=== PATIENT | female | born 1980 | race African-American/Black ===

== ENCOUNTER 2016-07-18 08:52 | Emergency (ER) | payer MEDICAID ==
[2016-07-18 09:12] VITALS: BP 150/102
--- NOTE | 2016-07-18 09:52 | ERNOTE ---
Back Pain ER HPI Date of Service: 07/18/16 Presenting Symptoms: hx chronic back pain Time Seen by Provider: 07/18/16 09:35 Source: patient Exam Limitations: no limitations Immunizations: IMMUNIZATION HX Immunizations Up to Date Yes History of Influenza Vaccine No Hx Pneumococcal Vaccination No Allergies/Adverse Reactions: Allergies No Known Allergies Allergy (Verified 07/18/16 09:12) Home Medications: HOME MEDICATIONS Cyclobenzaprine HCl 10 mg PO BID #28 tablet 07/18/16 [Last Taken Unknown] Sulindac 200 mg PO BID #28 tab 07/18/16 [Last Taken Unknown] Narrative: Woke up yesterday morning with pain in her low back. Hard to move because of the pain. Has had problems off and on for two years. Has been in our ER once before for the same problem. No radiation of pain. NOS. Pain moderate to severe. Tight and sharp pain. Timing: Reports: constant Quality/Severity: Reports: moderate, severe Location of pain: Reports: lower back, no radiation. Denies: radiating to rt thigh/leg Activities at Onset: Reports: none Recent Injury?: Reports: no Possible Precipitating Factor: Reports: none Modifying Factors - (Improves): Reports: other - rest Modifying Factors - (Worsens): Reports: movement to right, movement to left, movement flexion Associated Symptoms: Reports: none Prior Treament: Reports: similar symptoms before. Denies: recently seen, treated by physician, currently on antibiotics Review of Systems - Review of Systems Constitutional: Present: no symptoms reported EYE: Present: no symptoms reported ENT: Present: no symptoms reported Respiratory: Present: no symptoms reported Cardiology: Present: no symptoms reported Gastrointestinal/Abdominal: Present: no symptoms reported Genitourinary: Present: no symptoms reported Musculoskeletal: Present: See HPI Skin: Present: no symptoms reported Neurological: Present: no symptoms reported Endocrine: Present: no symptoms reported Hematologic/Lymphatic: Present: no symptoms reported Psych: Present: no symptoms reported All Other Systems: All systems neg except as marked - Patient's Past Medical History Patient History - Medical: No pertinent hx Patient History - Cardiac/Respiratory: No pertinent hx Patient History - Cancer: No Hx of Cancer Patient History - Surgical Procedures: Patient History - Other: None LMP (Calendar): 09/14/15 - Family History Mother Family History - Medical: No pertinent hx Father Family History - Medical: No pertinent hx - Social History Living Situations: home Abuse History: No History of abuse Psych History: No pertinent hx Smoking Status: Current every day smoker Have you smoked in the past 12 months: Yes Do you dip or chew tobacco: No Alcohol Use: occasionally Drug Use: none - Immunizations Immunizations Up to Date: Yes Hx Pneumococcal Vaccination: No History of Influenza Vaccine: No Physical Exam - Physical Exam General Appearance: Present: wd/wn, alert, no apparent distress Eye Exam: Normal inspection: bilateral, PERRL: bilateral, EOMI: bilateral Ears, Nose, Throat: Present: normal ENT inspection, hearing grossly normal Neck: Present: normal inspection Respiratory: Present: no respiratory distress, normal breath sounds Cardiovascular/Chest: Present: regular rate, rhythm, no murmur Gastrointestinal/Abdominal: Present: normal bowel sounds, nontender, nondistended, soft, no organomegaly Back Exam: Present: normal inspection, other - tender midline lumbosacral spine and the muscles to the right of the lumbosacral spine Extremity Exam: Present: normal inspection, non-tender, no edema, normal range of motion Neurological Exam: Present: alert, oriented, normal mood/affect, no motor/ sensory deficits Skin Exam: Present: normal color, warm/dry ED Progress - Vital Signs Patient's Vital Signs:: I have reviewed the patient's vital signs. Vital Signs: Vital Signs 07/18/16 09:09 Temperature 36.4 C Pulse Rate 96 Respiratory 14 Rate Blood Pressure 150/102 O2 Sat by Pulse 99 Oximetry - Progress/Reassessment Chief Complaint: Back Pain Departure Clinical Impression: Low back pain Qualifiers: Chronicity: acute Back pain laterality: bilateral Sciatica presence: without sciatica Qualified Code(s): M54.5 - Low back pain - Departure Disposition: Home self-care Condition: Good Instructions: Musculoskeletal Pain Additional Instructions: Use over the counter biofreeze gel and ice 20 minutes hourly. Followup with provider of your choice within the next 2 weeks. Consider visiting a chiropractor Prescriptions: Cyclobenzaprine HCl 10 mg PO BID #28 tablet Sulindac 200 mg PO BID #28 tab
== END 2016-07-18 10:00 | disposition home or self-care (01) ==
LOC: ER 08:52
DX: M54.5 Low back pain (principal); Z72.0 Tobacco use

== ENCOUNTER 2016-08-13 11:10 | Emergency (ER) | payer MEDICAID ==
--- NOTE | 2016-08-13 12:10 | ERNOTE ---
Abdominal HPI - Narrative Date of Service: 08/13/16 - General Chief Complaint: Abdominal Pain Time Seen by Provider: 08/13/16 11:40 Source: patient Exam Limitations: no limitations - Immun/Allergies/Home Medications Immunizatons: IMMUNIZATION HX Immunizations Up to Date Yes History of Influenza Vaccine No Hx Pneumococcal Vaccination No Allergies/Adverse Reactions: Allergies No Known Allergies Allergy (Verified 08/13/16 11:18) Home Medications: HOME MEDICATIONS Hydrocodone/Acetaminophen [Woden 5-325 Tablet] 1 tab PO Q6H PRN 08/13/16 [Last Taken Unknown] Omeprazole [Prilosec] 1 cap PO DAILY #30 cap 08/13/16 [Last Taken Unknown] traMADol HCL [Ultram] 1 tab PO Q8H PRN #30 tablet 08/13/16 [Last Taken Unknown] - History of Present Illness Narrative: Presents with c/o epigastric pain for several weeks, described as burning pressure. Pt seen in [id number] 2 days ago, but claims she needs a new Rx due to insurance issues. No nausea or vomiting at this time. Timing: intermittent Quality: moderate, burning, fullness, sharpness Modifying Factors - (Improves): Present: analgesics Associated Symptoms: Present: heartburn. Absent: headache, back pain, chest pain, neck pain, diaphoresis, diarrhea-gross blood, diarrhea-mucous, fatigue, fever/chills, nausea, vomiting, loss of appetite, shortness of breath, swelling/ mass in abdomen, syncope, weakness, other Review of Systems - Review of Systems Constitutional: Present: no symptoms reported EYE: Present: no symptoms reported ENT: Present: no symptoms reported Respiratory: Present: no symptoms reported Cardiology: Present: no symptoms reported Gastrointestinal/Abdominal: Present: See HPI Genitourinary: Present: no symptoms reported Skin: Present: no symptoms reported Neurological: Present: no symptoms reported Endocrine: Present: no symptoms reported Hematologic/Lymphatic: Present: no symptoms reported Psych: Present: no symptoms reported All Other Systems: All systems neg except as marked - Patient's Past Medical History Patient History - Medical: No pertinent hx Patient History - Cardiac/Respiratory: No pertinent hx Patient History - Cancer: No Hx of Cancer Patient History - Surgical Procedures: Patient History - Other: None LMP (Calendar): 09/14/15 - Family History Mother Family History - Medical: No pertinent hx Father Family History - Medical: No pertinent hx - Social History Living Situations: home Abuse History: No History of abuse Psych History: No pertinent hx Alcohol Use: occasionally Drug Use: none - Immunizations Immunizations Up to Date: Yes Hx Pneumococcal Vaccination: No History of Influenza Vaccine: No Physical Exam - Physical Exam General Appearance: Present: wd/wn, alert, no apparent distress Ears, Nose, Throat: Present: normal ENT inspection, normal pharynx Neck: Present: normal inspection, nontender Respiratory: Present: no respiratory distress, normal breath sounds, no accessory muscle use, chest nontender, lungs clear Cardiovascular/Chest: Present: regular rate, rhythm, no murmur Gastrointestinal/Abdominal: Present: normal bowel sounds, nondistended, soft, no organomegaly, tenderness - moderate epigastric TTP. Absent: distended, guarding, rebound, McBurney sign, Garcia sign, mass, hernia, hepatomegaly Back Exam: Present: normal inspection, normal range of motion, no CVA tenderness , no vertebral tenderness Neurological Exam: Present: alert, oriented Skin Exam: Present: normal color, warm/dry ED Progress - Results and Orders Patient's Lab Results:: I have reviewed the patient's lab results. - Vital Signs Patient's Vital Signs:: I have reviewed the patient's vital signs. Vital Signs: Vital Signs 08/13/16 11:13 Temperature 36.5 C Pulse Rate 92 Respiratory 12 Rate Blood Pressure 153/124 O2 Sat by Pulse 100 Oximetry - Progress/Reassessment Chief Complaint: Abdominal Pain Departure - Departure Clinical Impression: Epigastric pain Disposition: Home self-care Condition: Good Instructions: Heartburn, [id number], Esophagitis Referrals: Talisha Maria FNP [Primary Care Provider] - Prescriptions: Omeprazole [Prilosec] 1 cap PO DAILY #30 cap traMADol HCL [Ultram] 1 tab PO Q8H PRN #30 tablet PRN Reason: Pain
[2016-08-13 12:30] LABS: Hematocrit 32.4 % (37.0-47.0); Hemoglobin 11.2 gm/dL (12.5-16.0); Mean Cell Volume 68.5 fl (78-100); Mean Corpuscular Hemoglobin 23.7 pg (27-31); Mean Corpuscular Hgb Conc 34.6 g/dl (32-36); Platelet Count 165 K/mm3 (150-450); Red Blood Count 4.73 M/mm3 (4.2-5.4); Red Cell Distribution Width 19.8 % (11.5-14.0); White Blood Count 13.2 K/mm3 (4.0-10.5)
[2016-08-13 12:40] LABS: Total Cells Counted 100
[2016-08-13 12:41] LABS: Anion Gap 12.5 mmol/L (6.8-13.8); BUN/Creatinine Ratio 8.2 (9.0-21.6); Bilirubin, Total 0.4 mg/dL (0.0-1.1); Ca. Corrected For Albumin 8.5 mg/dL (8.4-10.2); Calcium * 8.8 mg/dL (7.9-10.9); Carbon Dioxide 28.1 mmol/L (24-32.6); Potassium 3.6 mmol/L (3.4-4.6); Total Protein 8.3 gm/dL (6.2-8.2)
[2016-08-13 12:51] LABS: Eosinophil 3 % (0-3); Hypochromia 1+; Lymphocyte 15 % (20-51); Monocyte 6 % (0-9); Neutrophil 76 % (42-75); Platelet Estimate Normal (NORMAL)
[2016-08-13 13:17] LABS: Urine Bilirubin Negative (NEGATIVE); Urine Blood Negative /ul (NEGATIVE); Urine Ketone Negative (NEGATIVE); Urine Nitrite Negative (NEGATIVE); Urine Protein 15 mg/dL (NEGATIVE); Urine Urobilinogen Normal (NORMAL); Urine pH 6.5 pH (5.0-7.0)
[2016-08-13 13:19] VITALS: BP 163/95
[2016-08-13 13:28] LABS: Urine Appearance Slightly Cloudy; Urine Bacteria 2+; Urine Color Yellow; Urine RBC None Seen /hpf (0-5)
[2016-08-13 13:29] LABS: Urine Fine Granular Cast 0-5 /LPF; Urine Mucus Moderate - 2+
== END 2016-08-13 14:04 | disposition home or self-care (01) ==
LOC: ER 11:10
DX: R10.13 Epigastric pain (principal)

== ENCOUNTER 2020-11-27 06:27 | Inpatient (IN) ==
[~2020-11-27 06:27] MED LIST: AZITHROMYCIN 500 MG in DEXTROSE 5 % IN WATER 250 ML IV PRN; ceFAZolin SODIUM 1 GM VIAL IV PRN
[2020-11-27 07:32] LABS: Cocaine Ur Negative (NEGATIVE); Urine Barbiturate Negative (NEGATIVE); Urine Benzodiazepines Negative (NEGATIVE); Urine Opiates Negative (NEGATIVE); Urine PCP Negative (NEGATIVE); Urine THC Negative (NEGATIVE)
[2020-11-27] MEDS ORDERED: RINGER'S SOLUTION,LACTATED 1,000 ML IV ONE ×2 (07:48→11:49)
--- NOTE | 2020-11-27 09:37 | HP ---
Chief Complaint - Chief Complaint Date of Service: 11/27/20 Time of Service: 09:28 Chief Complaint: contractions History of Present Illness: 40 yo at 37w2d presents via ambulance to L&D complaining of contractions of increased frequency and intensity. Patient also complaint of mild cough. Denies LOF, SOB, chest pain, decreased FM, DAMON, visual changes, or epigastric pain. Contractions are q3min of moderate intensity with several e levated BPs wtih the highest 153/101. This complicated by AMA, anemia, alpha thalassemia and Hg C carrier, asthma, CHTN, prior c/s, smoker, PTL, h/o PTD at 29wks for severe preeclampsia, and h/o alcohol abuse. 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 Pint of liquour/week. Bartholin cyst Onset Date: 03/2019 I&D History of gestational hypertension Onset Date: ~1999 History of delivery Onset Date: 11/06/99 29 week delivery. [facility]. Due to elevated blood pressures. MRSA (methicillin resistant staph aureus) culture positive Onset Date: 05/22/14 Poor historian Onset Date: Unknown Alpha thalassemia trait Onset Date: ~2017 Asthma Onset Date: Unknown no hospitalizations. Uses albuterol inhaler and nebulizers prn. Essential hypertension Onset Date: 02/21/20 Abdominal pain (Resolved) Onset Date: Unknown Abscess Onset Date: Unknown R axilla Alcohol abuse (Resolved) Onset Date: Unknown Bacterial vaginosis Onset Date: 05/15/14 Bronchitis (Resolved) Onset Date: Unknown Chronic low back pain (Resolved) Constipation (Resolved) Onset Date: Unknown Depression (Resolved) Onset Date: Unknown Dysmenorrhea (Resolved) Elevated blood pressure reading in office without diagnosis of hypertension (Resolved) Onset Date: Unknown Epigastric pain (Resolved) Onset Date: Unknown Flank pain, acute (Resolved) Folliculitis (Resolved) Hypokalemia (Resolved) Onset Date: Unknown LGSIL on Pap smear of cervix (Resolved) high risk HPV negative 09/01/16 Lesion of ovary (Resolved) left ovary, hyperdense lesion 1.[address] Low back pain (Resolved) Onset Date: Unknown Microcytic anemia (Resolved) Onset Date: Unknown Migraine headache with aura (Resolved) Onset Date: Unknown Pain in left ankle Pelvic pain (Resolved) Pyelonephritis (Resolved) Sinusitis, acute (Resolved) Onset Date: Unknown Strain of lumbar paraspinous muscle (Resolved) Onset Date: Unknown Tobacco abuse (Resolved) Trichomonas infection Onset Date: 05/22/14 UTI (urinary tract infection) (Resolved) Onset Date: Unknown Viral upper respiratory infection (Resolved) Onset Date: Unknown Surgical History: Surgical History (Last Reviewed 11/27/20 @ 09:42 by Marcos Gil DO) Previous section (Chronic) 29 week iatrogenic c/s for preeclampsia History of section Onset Date: 11/06/99 Failure to descend. delivery delivered Onset Date: ~11/06/99 History of dilation and curettage Onset Date: 12/28/18 No atypia or malignant neoplasia identified. History of hysteroscopy Onset Date: 12/28/18 History of laparoscopy Onset Date: 12/28/18 Diagnostic-w/Lysis of Adhesions History of ovarian cystectomy Onset Date: 12/28/18 Left-benign hemorrhagic follicular cysts including a corpus luteum cyst. Status post incision and drainage Onset Date: Unknown R axilla Family History: Family History (Last Reviewed 11/27/20 @ 09:42 by Marocs Gil DO) Brother , age 39 Gunshot wound Father Alive and well Mother Lung cancer Daughter Alive and well Social History: (Last Reviewed 11/27/20 @ 09:42 by Marcos Gil DO) Social History: adopted: No Marital status: Single lives independently: Yes household members: none number of children: 1 current occupational status: unemployed current occupation: product applications engineer Highest level of school completed/degree received: 11th grade Sexually Active: Yes Service: No Tobacco: Smoking Status: Current every day smoker tobacco type: cigarettes Smoking cigarettes per day: 5 Alcohol: alcohol intake: current Alcohol type: hard liquor alcohol intake frequency: a few times a week details: none since 04/13/20 Substance Use: substance use type: does not use Dietary Habits: caffeine: Yes caffeine comment: 3/day Type: carbonated beverages Exercise: frequency: does not exercise Review Of Systems (GEN) - Review of Systems Generalized/Overall Review: Present: No Symptoms Reported EENTM: Present: No Symptoms Reported Respiratory: Present: Cough Cardiac: Present: No Symptoms Reported Abdominal: Present: Abdominal Pain - contractions Genitourinary: Present: No Symptoms Reported Musculoskeletal: Present: No Symptoms Reported Neurological: Present: No Symptoms Reported Skin: Present: No Symptoms Reported Endocrine: Present: No Symptoms Reported Immunizations: IMMUNIZATION HX Immunizations Up to Date Yes History of Influenza Vaccine Yes Hx Pneumococcal Vaccination No Allergies/Adverse Reactions: Allergies Allergy/AdvReac Type Severity Reaction Status Date / Time No Known Allergies Allergy Verified 11/27/20 06:49 Home Medications: HOME MEDICATIONS vit,calcium 27-ferrous fum 60 mg iron-folic acid 1 mg tablet See Rx Instructions .ROUTE .COMPLEX #30 unknown measurement unit code: tablet 12/11/19 [Last Taken 10/29/20 08:00] Albuterol Sulfate 2.5 mg IH Q6H PRN #50 vial.neb 02/21/20 [Last Taken Unknown] aspirin 81 mg tablet,delayed release 81 mg PO DAILY #30 tab 07/04/20 [Last Taken 10/29/20 08:00] albuterol sulfate 90 mcg/actuation aerosol inhaler 1 - 2 puff IH Q4H PRN #1 inhaler 07/25/20 [Last Taken Unknown] ferrous sulfate 325 mg (65 mg iron) tablet 325 mg PO BID tab 11/11/20 [Last Taken Unknown] Exam - Exam Vital Signs: Vital Signs - Last Taken Temp 36.6 C 11/27/20 07:10 Pulse 92 11/27/20 07:10 Resp 16 11/27/20 07:10 BP 122/81 11/27/20 07:10 Pulse Ox 100 11/27/20 07:10 Constitutional: Present: Alert, Oriented x3, Cooperative, Mild distress ENT Exam: Present: hearing grossly normal Neck: Present: non-tender. Absent: thyromegaly Respiratory: Present: lungs clear, no respiratory distress Cardiovascular/Chest: Present: normal peripheral pulses, regular rate, rhythm Abdomen: Present: soft, nontender, no rebound tenderness, other - Gravid /Rectal: Present: Other - 1/50/-2 Extremity: Present: no pedal edema, no calf tenderness Skin Exam: Present: normal color, warm/dry, no cyanosis Lymphatic: Present: no adenopathy Neurologic: Present: alert, normal mood/affect, oriented x 3 Appearance: Present: appropriate appearance, appropriate insight Eye contact: Present: cooperative, good eye contact Thoughts: Present: normal mood /affect Diagnostic Studies: Laboratory Results Urine Opiates Screen Negative (NEGATIVE) 11/27/20 07:00 Barbiturate Screen Negative (NEGATIVE) 11/27/20 07:00 Ur Phencyclidine Scrn Negative (NEGATIVE) 11/27/20 07:00 Urine Amphetamine Negative (NEGATIVE) 11/27/20 07:00 U Benzodiazepines Scrn Negative (NEGATIVE) 11/27/20 07:00 Urine Cocaine Screen Negative (NEGATIVE) 11/27/20 07:00 Urine Marijuana (THC) Negative (NEGATIVE) 11/27/20 07:00 SARS-CoV-2 (PCR) Not detected (NotDetected) 11/27/20 08:00 Assessment/Plan - Assessment/Plan (1) Labor established Assessment: Admit for RLTCS. Preeclamptic labs. Problem: Acute (2) Previous section Problem: Chronic (3) Hypertension Problem: Chronic Qualifiers: Hypertension type: essential hypertension Qualified Code(s): I10 - Essential (primary) hypertension (4) Asthma Problem: Chronic Qualifiers: Asthma severity: mild Asthma persistence: intermittent Asthma complication type: uncomplicated Qualified Code(s): J45.20 - Mild intermittent asthma, uncomplicated (5) Smoker Problem: Chronic (6) Anemia Problem: Acute Qualifiers: Anemia type: other cause Other causes of anemia: other cause, not classified Qualified Code(s): D64.89 - Other specified anemias (7) Hemoglobin C (Hb-C) Problem: Chronic (8) Alcohol abuse Problem: Resolved (9) History of delivery Problem: Chronic (10) Advanced maternal age (AMA) in Problem: Chronic (11) Thalassemia trait, alpha Problem: Chronic (12) Marijuana use Problem: Resolved
[2020-11-27 09:40] LABS: Hematocrit 28.4 % (37.0-47.0); Hemoglobin 9.6 gm/dL (12.5-16.0); Mean Cell Volume 70.8 fl (78-100); Mean Corpuscular Hemoglobin 23.9 pg (27-31); Mean Corpuscular Hgb Conc 33.8 g/dl (32-36); Platelet Count 201 K/mm3 (150-450); Red Blood Count 4.01 M/mm3 (4.2-5.4)
[2020-11-27 09:41] LABS: Random Urine Total Protein 117.3 mg/dL (0-12)
[2020-11-27 09:46] LABS: Total Cells Counted 100
[2020-11-27] MEDS ORDERED: BUPIVACAINE HCL/EPINEPHRINE 50 ML VIAL ONE (09:47)
[2020-11-27 09:48] LABS: Albumin * 2.4 gm/dl (3.4-5.0); Anion Gap 13.6 mmol/L (6.8-13.8); BUN/Creatinine Ratio 14.6 (9.0-21.6); Bilirubin, Total 0.4 mg/dL (0.0-1.1); Ca. Corrected For Albumin 9.5 mg/dL (8.4-10.2); Calcium * 8.5 mg/dL (7.9-10.9); Carbon Dioxide 22.4 mmol/L (24-32.6); Total Protein 6.6 gm/dL (6.2-8.2)
[2020-11-27] MEDS ORDERED: ceFAZolin SODIUM 1 GM VIAL ONE (09:48)
[2020-11-27] MEDS ORDERED: RINGER'S SOLUTION,LACTATED 1,000 ML IV PRN (09:55)
--- NOTE | 2020-11-27 10:04 | ANES ---
Anesthesia Pre Procedure Eval Vitals/Labs: Last Vital Signs Temp 36.6 C 11/27/20 07:10 Pulse 92 11/27/20 07:10 Resp 16 11/27/20 07:10 BP 122/81 11/27/20 07:10 Pulse Ox 100 11/27/20 07:10 HOME MEDICATIONS vit,calcium 27-ferrous fum 60 mg iron-folic acid 1 mg tablet See Rx Instructions .ROUTE .COMPLEX #30 unknown measurement unit code: tablet 12/11/19 [Last Taken 10/29/20 08:00] Albuterol Sulfate 2.5 mg IH Q6H PRN #50 vial.neb 02/21/20 [Last Taken Unknown] aspirin 81 mg tablet,delayed release 81 mg PO DAILY #30 tab 07/04/20 [Last Taken 10/29/20 08:00] albuterol sulfate 90 mcg/actuation aerosol inhaler 1 - 2 puff IH Q4H PRN #1 inhaler 07/25/20 [Last Taken Unknown] ferrous sulfate 325 mg (65 mg iron) tablet 325 mg PO BID tab 11/11/20 [Last Taken Unknown] Allergies/Adverse Reactions: Allergies Allergy/AdvReac Type Severity Reaction Status Date / Time No Known Allergies Allergy Verified 11/27/20 06:49 - Planned Procedure Planned Procedure: Repeat Medication List Reviewed:: Yes Allergies Verified: Yes Medical History (Last Reviewed 11/27/20 @ 10:02 by Ross King CRNA) Alcohol abuse (Resolved) Smoker (Chronic) History of delivery (Chronic) 29 week iatrogenic c/s for preeclampsia Advanced maternal age (AMA) in (Chronic) Hypertension (Chronic) Pt has not been taking BP med for past several weeks Abnormal hemoglobin (Chronic) 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 Pint of liquour/week. Bartholin cyst Onset Date: 03/2019 I&D History of gestational hypertension Onset Date: ~1999 History of delivery Onset Date: 11/06/99 29 week delivery. [facility]. Due to elevated blood pressures. MRSA (methicillin resistant staph aureus) culture positive Onset Date: 05/22/14 Poor historian Onset Date: Unknown Alpha thalassemia trait Onset Date: ~2017 Asthma Onset Date: Unknown no hospitalizations. Uses albuterol inhaler and nebulizers prn. Essential hypertension Onset Date: 02/21/20 Abdominal pain (Resolved) Onset Date: Unknown Abscess Onset Date: Unknown R axilla Alcohol abuse (Resolved) Onset Date: Unknown Bacterial vaginosis Onset Date: 05/15/14 Bronchitis (Resolved) Onset Date: Unknown Chronic low back pain (Resolved) Constipation (Resolved) Onset Date: Unknown Depression (Resolved) Onset Date: Unknown Dysmenorrhea (Resolved) Elevated blood pressure reading in office without diagnosis of hypertension (Resolved) Onset Date: Unknown Epigastric pain (Resolved) Onset Date: Unknown Flank pain, acute (Resolved) Folliculitis (Resolved) Hypokalemia (Resolved) Onset Date: Unknown LGSIL on Pap smear of cervix (Resolved) high risk HPV negative 09/01/16 Lesion of ovary (Resolved) left ovary, hyperdense lesion 1.[address] Low back pain (Resolved) Onset Date: Unknown Microcytic anemia (Resolved) Onset Date: Unknown Migraine headache with aura (Resolved) Onset Date: Unknown Pain in left ankle Pelvic pain (Resolved) Pyelonephritis (Resolved) Sinusitis, acute (Resolved) Onset Date: Unknown Strain of lumbar paraspinous muscle (Resolved) Onset Date: Unknown Tobacco abuse (Resolved) Trichomonas infection Onset Date: 05/22/14 UTI (urinary tract infection) (Resolved) Onset Date: Unknown Viral upper respiratory infection (Resolved) Onset Date: Unknown Surgical History (Last Reviewed 11/27/20 @ 10:02 by Ross King CRNA) Previous section (Chronic) 29 week iatrogenic c/s for preeclampsia History of section Onset Date: 11/06/99 Failure to descend. delivery delivered Onset Date: ~11/06/99 History of dilation and curettage Onset Date: 12/28/18 No atypia or malignant neoplasia identified. History of hysteroscopy Onset Date: 12/28/18 History of laparoscopy Onset Date: 12/28/18 Diagnostic-w/Lysis of Adhesions History of ovarian cystectomy Onset Date: 12/28/18 Left-benign hemorrhagic follicular cysts including a corpus luteum cyst. Status post incision and drainage Onset Date: Unknown R axilla Family History (Last Reviewed 11/27/20 @ 10:02 by Ross King CRNA) Brother , age 39 Gunshot wound Father Alive and well Mother Lung cancer Daughter Alive and well - Family Anesthesia History Family History:: no untoward family reactions to anesthesia, no familial bleeding tendencies, no family history of clotting disorders, no family history of premature - Airway/Neck/Teeth Teeth Condition: intact - cracked molars bilaterally Neck Exam: full range of motion Mallampatti Score: 2 Thyromental (T-M) distance: > 6 cm Mandibulo Hyoid distance: > 3 cm - Respiratory Respiratory History: asthma Respiratory Physical: rhonchi Smoking Status: Current every day smoker Discussed smoking cessation including day of surgery: Yes Sleep Apnea currently treated: No Sleep Apnea by current assessment: No - Cardiovascular Cardiac History: hypertension Tolerate Activity: Fair Heart Sounds: S1 & S2, Regular - Gastrointestinal NPO since: early am - Anesthesia Assessment and Plan ASA Class: PS, II, E Anesthesia Type Plan: Block - Bilateral TAP block for post op pain relief, Spinal
[2020-11-27 10:31] LABS: Band 3 % (0-2.0); Eosinophil 1 % (0-3); Lymphocyte 18 % (20-51); Monocyte 12 % (0-9); Neutrophil 66 % (42-75); Neutrophil # 10.6 K/mm3 (1.3-6.0); Platelet Estimate Normal (NORMAL)
[2020-11-27 10:32] LABS: Anisocytosis 1+; Hypochromia 1+; Polychromasia Trace; Target Cells 1+
[2020-11-27 10:33] LABS: Microcytosis 1+
[2020-11-27] MEDS ORDERED: OXYTOCIN/0.9 % SODIUM CHLORIDE 30 UNITS/500 ML BAG IV ONE (11:01)
[2020-11-27] MEDS ORDERED: SIMETHICONE 80 MG TAB.CHEW PO PRN (11:49)
[2020-11-27] MEDS ORDERED: BISACODYL 10 MG SUPP.RECT RC PRN (11:49)
[2020-11-27] MEDS ORDERED: AZITHROMYCIN 500 MG in DEXTROSE 5 % IN WATER 250 ML IV PRN ×2 (11:49)
[2020-11-27] MEDS ORDERED: SENNOSIDES 8.6 MG TABLET PO PRN (11:49)
[2020-11-27] MEDS ORDERED: ONDANSETRON HCL/PF 2 MG/ML VIAL IV PRN (11:49)
[2020-11-27] MEDS ORDERED: ACETAMINOPHEN 325 MG TABLET PO PRN (11:49)
--- NOTE | 2020-11-27 11:55 | OR ---
Operative Report - Dictated Report Narrative: Indication: 40-year-old 1 para 0-1-0-1 at 37 weeks 2 days with prior section presents to labor and delivery in labor with elevated blood pressures. Laboratory work determined her to have chronic hypertension with superimposed preeclampsia. status: Urgent Pre Operative Diagnosis: 37-week 2-day intrauterine . Prior section. Chronic hypertension with superimposed preeclampsia. Labor. Post Operative Diagnosis: Same. Procedure: Repeat low transverse section. Surgeon: Mary Gil DO Quill Machine Operator: OR Staff Anesthesia: Spinal, TAP block Estimated Blood Loss: 150 mL Urine Output: 45 mL clear urine Fluids Replacement: 750 mL of crystalloid Drains: Gonzalez to gravity Surgical Complications: None Specimens: Placenta to pathology Findings: Female in cephalic presentation born at 1051 on 11/27/2019 with Apgars 9 and 9, weighing 3477 g. Normal uterus, tubes, ovaries Technique: The patient was taken to the operating room and placed in dorsal supine position with a left lateral tilt. After adequate spinal anesthesia, gonzalez catheter inserted, SCDs placed, and 2 g of Ancef given preoperatively, the abdominal cavity was entered using sharp and blunt dissection. Zithromax 500 mg intravenously was started prior to bringing her to the OR and was infusing throughout the surgery. Two rolled laps were placed in the pericolic gutters on either side of the uterus. A transverse incision was made in the lower uterine segment and extended laterally and upwardly with digital traction. Clear fluid was noted upon amniotomy. The was delivered easily. The cord was clamped and cut and infant was handed off to awaiting passenger rate clerk. The placenta was allowed to deliver spontaneously. The uterus was cleared of clot and debris. Uterine incision was closed with 0 Vicryl using a running stitch. A second imbricating layer was placed. Excellent hemostasis was noted. The rolled laps were removed from the abdominal cavitiy. The peritoneum was closed with a running 3-0 Monocryl. The same suture was used to approximate the rectus and pyramidalis muscles. The fascia was closed with a running 0 Vicryl. The subcutaneous layer was closed with a running 3-0 Monocryl. The same suture was used to approximate the subdermal layer. The skin was closed with a running 4-0 Monocryl and Dermabond. Sponge, lap, needle, and instrument count were correct x 2. Disposition: To post anesthesia care unit in good condition History for MU History for MU Definition: * The number of deliveries resulting in a live the patient experienced prior to current hospitalization * The previous delivery of live twins or any live multiple gestation is considered one live event. *If primagravida or nulliparous is documented select zero for the number of previous live births. Live Events: Live Events: 1
--- NOTE | 2020-11-27 12:07 | ANES ---
Post Anesthesia Discharge - Transfer of Care Transfer of Care handoff given to nurse: Yes - Discharge from PACU Discharge from PACU when meets criteria: Yes - Comfortable.
--- NOTE | 2020-11-27 12:08 | ANES ---
Anesthesia Procedure Note Procedure Note: ANESTHESIA PROCEDURE NOTE Date of Procedure: 11/27/2020 Time of procedure: 11:45 AM. Performed by: ALEX Pichardo CRNA, MSN Document Image Technician: Yudy Garcia RN. Preprocedure diagnosis: Post section pain. Post procedure diagnosis: Same. Procedure: Bilateral TAP block Indications: Post section pain relief. Findings: See below. Details of the procedure: The patient was brought to PACU and placed in the supine position. The patient was prepped with chlorhexidine and using ultrasound guidance the 3 abdominal muscular planes were identified and lidocaine 1% was infiltrated to the skin of the intended injection site. Under ultrasound guidance the the internal oblique and transverse this abdominis muscle layers were approached with visualization of a 4 inch block needle until the tip of the needle rested in the plane between the muscles. 25 mL bupivacaine 0.5% with 1-200,000 epinephrine was injected and the procedure was repeated on the other side. Please see radiology/ultrasound report for details and images of the procedure. EBL: 0 Fluids: N/A. Specimen: N/A. Post procedure condition: The patient tolerated the procedure well. No complications were noted. Thank you for this consultation. Ross King CRNA, ARNP, MSN
[2020-11-27] MEDS: IBUPROFEN 800 MG TABLET PO PRN ×2 (12:35→18:35)
[2020-11-27] MEDS: oxyCODONE HCL/ACETAMINOPHEN 1 TAB TABLET PO PRN ×3 (12:36→18:35)
--- NOTE | 2020-11-27 13:16 | ANES ---
Post Anesthesia Assessment - Vital Signs Vitals: Last Vital Signs Temp 36.8 C 11/27/20 12:15 Pulse 82 11/27/20 13:05 Resp 20 11/27/20 13:05 BP 107/63 11/27/20 13:05 Pulse Ox 100 11/27/20 13:05 Airway Patency: Normal - Mental Status Level Of Consciousness: Awake, Alert, Appropriate - Pain Level Pain Score: 0 - N/V Assessment Nausea/Vomiting Presence: None Dehydration:: No
[2020-11-27] MEDS ORDERED: LABETALOL HCL 5 MG/ML VIAL IV ONE ×3 (13:19→15:36)
[2020-11-27] MEDS ORDERED: CALCIUM GLUCONATE 4.65 MEQ/10 ML VIAL IV PRN (13:35)
[2020-11-27] MEDS ORDERED: DEXTROSE 5%-LACTATED RINGERS 1,000 ML IV PRN (13:35)
[2020-11-27] MEDS ORDERED: ALBUTEROL SULFATE 2.5 MG/3 ML VIAL.NEB IH PRN ×2 (13:39→14:00)
[2020-11-27] MEDS ORDERED: ALBUTEROL SULFATE 200 PUFF INHALER IH PRN (13:39)
[2020-11-27] MEDS ORDERED: MAGNESIUM SULFATE IN WATER 1,000 ML IV SCH (13:45)
[2020-11-27] MEDS: MAGNESIUM SULFATE IN WATER 50 ML, MAGNESIUM SULFATE IN WATER 50 ML IV ONE ×4 (13:56→14:15)
[2020-11-27 14:07] LABS: Hematocrit 27.5 % (37.0-47.0); Hemoglobin 9.4 gm/dL (12.5-16.0); Mean Cell Volume 71.2 fl (78-100); Mean Corpuscular Hemoglobin 24.4 pg (27-31); Mean Corpuscular Hgb Conc 34.2 g/dl (32-36); Mean Platelet Volume 10.5 fl (8-12.5); Neutrophil # 13.2 K/mm3 (1.3-6.0); Neutrophil % 82.7 % (42-75.0); Platelet Count 187 K/mm3 (150-450); Red Blood Count 3.86 M/mm3 (4.2-5.4); Red Cell Distribution Width 18.2 % (11.5-14.0)
[2020-11-27 14:20] LABS: Albumin * 2.3 gm/dl (3.4-5.0); Anion Gap 12.7 mmol/L (6.8-13.8); Bilirubin, Total 0.3 mg/dL (0.0-1.1); Ca. Corrected For Albumin 9.2 mg/dL (8.4-10.2); Calcium * 8.2 mg/dL (7.9-10.9); Potassium 3.7 mmol/L (3.4-4.6); Total Protein 6.2 gm/dL (6.2-8.2)
[2020-11-27] MEDS: LABETALOL HCL 100 MG TABLET PO SCH ×2 (14:40→21:00)
[2020-11-27] MEDS ORDERED: oxyCODONE HCL/ACETAMINOPHEN 1 TAB TABLET PO ONE (14:57)
--- NOTE | 2020-11-27 15:46 | PN ---
Progess Note - Interim Date: 11/27/20 Time: 15:46 Narrative: 11/27/20 15:46 Since surgery patient has had multiple severe range blood pressures. She was started on IV labetalol and oral labetalol as well as magnesium for seizure prophylaxis. We will continue magnesium for 24 hours and monitor blood pressures and treat severe range blood pressures accordingly.
[2020-11-27] MEDS ORDERED: ENOXAPARIN SODIUM 40 MG/0.4 ML SYRG SC SCH (20:00)
[2020-11-27] MEDS ORDERED: DOCUSATE SODIUM 100 MG CAPSULE PO SCH (21:00)
[2020-11-27] MEDS ORDERED: FERROUS SULFATE 325 MG TABLET PO SCH (21:00)
[2020-11-27] MEDS ORDERED: DEXTROSE 5%-LACTATED RINGERS 500 ML IV PRN (22:15)
[2020-11-27 23:18] VITALS: BP 94/52
[2020-11-28] MEDS ORDERED: PRENATAL VITS96/IRON FUM/FOLIC 1 TAB TABLET PO SCH (09:00)
== END 2020-11-27 23:59 | disposition still patient (30) | DRG 788 ==
LOC: ER 06:27 → OBCLINIC 06:45 → OB 09:23
PROVIDERS: ADMIT Obstetrics & Gynecology; ATTEND Obstetrics & Gynecology